=== PATIENT | female | born 1980 | race Caucasian/White ===

== ENCOUNTER 2017-01-11 21:03 | Emergency (ER) | payer OTHER ==
[~2017-01-11] VITALS: Ht 165.1 cm; Wt 73.3 kg
[~2017-01-11 21:03] MED LIST: BACTRIM,SEPT1 TABLET PO; CIPRO500 MG PO; ENDOCET 5-3251 EACH PO; HYDROMORPHONE HC4 MG PO; IBUPROFEN800 MG PO; KEFLEX500 MG PO; TYLENOL REGULA325 MG PO; VITAFOL-OB+DHA1 EACH PO
[2017-01-11] MEDS ORDERED: MOTRIN800 MG PO (22:53)
[2017-01-11] MEDS ORDERED: FLEXERIL10 MG PO (22:53)
[2017-01-11 23:04] VITALS: BP 110/67
== END 2017-01-11 23:06 | disposition home or self-care (01) ==
LOC: EME 21:03
DX: S16.1XXA Strain of muscle, fascia and tendon at neck level, initial encounter (principal); V49.40XA Driver injured in collision with unspecified motor vehicles in traffic accident, initial encounter
CPT/HCPCS: 72040; 99281; 99284